=== PATIENT | male | born 2000 | race Caucasian/White ===

== ENCOUNTER 2024-01-24 01:28 | Emergency (ER) | payer SELFPAY ==
[2024-01-24 01:33] VITALS: BP 138/95; PULSE 72; TEMP 36.6; O2SAT 99; BMI 35.0
--- NOTE | 2024-01-24 01:42 | XR_ITS ---
The [address] [address] Patient Name: YARA HUI MRN: [id number] date: 2000 Sex: M Assigned Patient Location: ED.MAIN Current Patient Location: ER Accession/Order Number: [id number] Exam Date: 01/24/2024 01:48 Report Date: 01/24/2024 02:16 At the request of: EHSAN GATES Procedure: XR shoulder LT min 2V EXAM: XR shoulder LT min 2V HISTORY: fall COMPARISON: None. TECHNIQUE: 3 views of the left shoulder were obtained. FINDINGS: No acute fracture or dislocation is seen. The left humeral head is well-seated on the glenoid. The left acromioclavicular and coracoclavicular distances are preserved. The imaged lungs are clear. XR/XR shoulder LT min 2V IMPRESSION: 1. No acute fracture or dislocation of the left shoulder is seen. If there is concern for internal derangement, a nonemergent outpatient MRI is recommended. Electronically authenticated by: Benjamin KAUFMAN Date: 01/24/2024 02:16
--- NOTE | 2024-01-24 01:44 | ED.UPPEXIN1 ---
HPI HPI - Extremity Injury (Upper) General Chief Complaint: Extremity Injury, Upper Stated Complaint: UE INJURY Time Seen by Provider: 01/24/24 01:38 Source: patient Mode of arrival: walk-in Limitations: no limitations History of Present Illness HPI narrative: 23-year-old male who is right-handed presents for left shoulder pain. He had fallen backwards yesterday and landed on the shoulder. He points to the anterior shoulder area to indicate the area of most pain. No pain in the elbow or wrist or neck. He did not hit his head. It hurts more to move it. Related Data Allergies Allergy/AdvReac Type Severity Reaction Status Date / Time No Known Drug Allergies Allergy Verified 01/24/24 01:33 Opioid HPI Opioid Management Most Recent Pain and Opioid Data: Last Pain Scale 3 01/24/24 01:38 01/24/24 Review of Systems ROS Narrative A ten point review of systems is negative except as noted above. PFSH PFSH Social History Little interest or pleasure in doing things: not at all Feeling down, depressed, or hopeless: not at all Exam Narrative Exam Narrative: Nurses note and vital signs reviewed and patient is not hypoxic. General: The patient appears well and in no apparent distress. Patient is resting comfortably on cart. Skin: Warm, dry, no pallor noted. There is no rash noted. Head: Normocephalic, atraumatic Eye: Normal conjunctiva, no drainage Ears, Nose, Mouth, and Throat: oral mucosa is moist. Nares patent. Cardiovascular: Regular Rate and Rhythm Respiratory: Patient is in no distress, no accessory muscle use, lungs are clear to auscultation, no wheezing, rales or rhonchi Back: non-tender including the C-spine GI: Soft and nontender Musculoskeletal: The left shoulder was examined and has no deformity. There is no bruise or abrasion. No focal area of tenderness to palpation and it has good range of motion. Left elbow nontender and has full range of motion. Radial pulse 2+ on the left side. Neurological: A&O normal speech Psychiatric: Cooperative Constitutional Vital Signs, click to edit/add: Last Vital Signs Temp 97.8 F 01/24/24 01:33 Pulse 72 01/24/24 01:33 Resp 18 01/24/24 01:33 BP 138/95 H 01/24/24 01:33 Pulse Ox 99 1013/24 01:33 O2 Del Method Room Air 01/24/24 01:33 Course Vital Signs Vital signs: Vital Signs Temperature 97.8 F 01/24/24 01:33 Pulse Rate 72 01/24/24 01:33 Respiratory Rate 18 01/24/24 01:33 Blood Pressure 138/95 H 01/24/24 01:33 Pulse Oximetry 99 01/24/24 01:33 Oxygen Delivery Method Room Air 01/24/24 01:33 Temperature 97.8 F 01/24/24 01:33 Pulse Rate 72 01/24/24 01:33 Respiratory Rate 18 01/24/24 01:33 Blood Pressure 138/95 H 01/24/24 01:33 Pulse Oximetry 99 01/24/24 01:33 Oxygen Delivery Method Room Air 01/24/24 01:33 MDM - Extremity Injury (Upper) MDM Narrative Medical decision making narrative: X-ray per radiologist is no acute findings. I offered to make an appointment to see Dr. Boykin but he requested the address and phone number and he will call if it is not better in a few days. Treatment diagnosis and follow-up were discussed with the patient. Differential Diagnosis Differential diagnosis: Likely other (Shoulder strain, rotator cuff injury, shoulder fracture) Imaging Data Left shoulder x-ray: Radiologist's impression: ITS Impressions Shoulder X-Ray 01/24/24 01:42 IMPRESSION: 1. No acute fracture or dislocation of the left shoulder is seen. If there is concern for internal derangement, a nonemergent outpatient MRI is recommended. Electronically authenticated by: Benjamin KAUFMAN Date: 01/24/2024 02:16 Discharge Plan Discharge Chief Complaint: Extremity Injury, Upper Clinical Impression: Left shoulder strain Patient Disposition: Home, Self-Care Time of Disposition Decision: 02:23 Condition: Good Mode of Transportation: Private Vehicle Print Language: Guamanian Instructions: Rotator Cuff Injury (ED) Referrals: Physician,Non-Staff, [Primary Care Provider] - 1 week Jatinder Boykin MD [Physician] - 1 week
== END 2024-01-24 02:29 | disposition home or self-care (01) ==
PROVIDERS: Emergency Provider Emergency Medicine
DX: S46.912A Strain of unspecified muscle, fascia and tendon at shoulder and upper arm level, left arm, initial encounter (principal); W19.XXXA Unspecified fall, initial encounter
CPT/HCPCS: 73030; 99283

== ENCOUNTER 2024-02-05 20:29 | Emergency (ER) | payer MEDICAID, SELFPAY ==
[2024-02-05 20:32] VITALS: BP 130/81; PULSE 85; TEMP 36.6; O2SAT 99; BMI 35.0
--- OUTSIDE RECORDS SUMMARY | 2024-02-05 20:37 | XMS_ITS | CCD ---
Author Organization [facility] Care Team Providers Care Bulb Grower Name Role Phone IFEOMA BRITO Admitting Unavailable SELF, REFERRED Referring Unavailable DORI HOUGH Primary Care Unavailable ELAINA SEQUEIRA Attending Unavailable IFEOMA BRITO Admitting Unavailable DORI HOUGH Primary Care Unavailable SELF, REFERRED Referring Unavailable HAILE ATWOOD Attending Unavailable YARA EDWARDS Admitting Unavailable DORI HOUGH Primary Care Unavailable SELF, REFERRED Referring Unavailable TOSHA TODD Attending Unavailable DORI HOUGH Primary Care Unavailable JOSE MORAN Admitting Unavailable JOSE MORAN Attending Unavailable Problems Problem Classification Problem Date Documented Da te Episodic/Chronic Other lower respiratory disease (3 sources) Cough; Translations: [COUGH] Onset: 05-12-2019 Episodic Residual codes; unclassified (1 source) Procedure and treatment not carried out due to patient leaving prior to being seen by health care provider; Translations: [PROC AND TX NOT CARRIED OUT PT LEAVE] Onset: 05-16-2019 Episodic Results Test Name Value Interpretation Reference Range Facil ity *BETA STREP A CULTUREon 08-12 *BETA STREP A CULTURE Clinical Report: (D) Specimen: THROAT Collected: 09/07/2018 21:15 Status: Final Last Updated: 09/10/2018 08:09 ISO (Final) No Group A Streptococci Isolated Normal [facility] Comment on above: Performed By: #### 3 0316 #### [facility] [address] [place] [address], [facility] *RAPID FLU AANDB BY MOLECULA Nash 09-07-2018 *RAPID FLU AANDB BY MOLECULAR Clinical Report: (D) Specimen: NASAL SWAB Collected: 09/07/2018 21:15 Status: Final Last Updated: 09/07/2018 21:59 FLUA RNA (Final) Negative FLUB RNA (Final) Negative Normal [facility] Comment on above: Performed By: #### 3 1018 #### [facility] [address] [place] [address], [facility] POC STREP SCREENon 9 STREP POC Negative Normal NEG [facility] Comment on above: Result Comment: Perf ormed in ED Performed By: #### 3 0211 #### [facility] [address] [facility] [place] [place] [address], [facility] *BETA STREP A CULTUREon 07-12 *BETA STREP A CULTURE Clinical Report: (D) Specimen: THROAT Collected: 07/22/2018 14:45 Status: Final Last Updated: 07/24/2018 08:01 ISO (Final) No Group A Streptococci Isolated ISO (Final) Heavy Growth Colonies Consistent with Upper Respiratory Sofía Normal [facility] Comment on above: Performed By: #### 3 0316 #### [facility] [address] [place] [address], [facility] POC STREP SCREENon 9 STREP POC Negative Normal NEG [facility] Comment on above: Result Comment: Perf ormed in ED Performed By: #### 3 0211 #### [facility] [address] [facility] [place] [place] [address], [facility] *BETA STREP A CULTUREon *BETA STREP A CULTURE Clinical Report: (D) Specimen: THROAT Collected: 07/20/2018 19:00 Status: Final Last Updated: 07/22/2018 14:46 ISO (Final) No Group A Streptococci Isolated Normal [facility] Comment on above: Performed By: #### 3 0316 #### [facility] [address] [place] [address], [facility] *RAPID FLU AANDB BY MOLECULA Nash 07-20-2018 *RAPID FLU AANDB BY MOLECULAR Clinical Report: (D) Specimen: NASAL SWAB Collected: 07/20/2018 18:33 Status: Final Last Updated: 07/20/2018 19:06 FLUA RNA (Final) Positive for Influenza A Results called. Read back by ALUMINUM POLISHERELENI Jason on 07/20/18 at 1900 FLUB RNA (Final) Negative Normal [facility] Comment on above: Performed By: #### 3 1018 #### [facility] [address] [place] [address], [facility] POC STREP SCREENon 9 STREP POC Negative Normal NEG [facility] Comment on above: Result Comment: Perf ormed in ED Performed By: #### 3 0211 #### [facility] [address] [place] [address], [facility] Encounters Encounter Date Encounter Type Care Provider Facility Start: 05-12-2019 End: 05-12-2019 Patient encounter procedure DORI GIANLUCA Facility: Start: 09-07-2018 End: 09-08-2018 Emergency department patient visit YARA EDWARDS Facility:[facility] Start: 07-22-2018 End: 07-22-2018 Emergency department patient visit IFEOMA BRITO Facility:[facility] Start: 07-20-2018 End: 07-20-2018 Emergency department patient visit IFEOMA BRITO Facility:[facility] Payers Date Payer Category Payer Unknown [id number] 2.16.8 [id number] 1974 Unknown [id number] [id number] [id number] 1976 Unknown [id number] [id number] [id number] 1976 Unknown [id number] 2.16.84 [id number] 1959 Unknown [id number] Unknown [id number] Summary Purpose Family History No Family History Records FoundNo Family History Records Found Advance Directives No Advanced Directives Records FoundNo Advanced Directives Records Found Additional Source Comments (unrecognized sect ion and content) No Status Records FoundNo Status Records Found INFORMATION SOURCE (unrecogn ized section and content) DATE CREATED AUTHOR 11/22/2018 The [facility] DATE CREATED AUTHOR AUTHOR'S DIANN RANGEL 05/16/2019 The [employer] FOR RECORDS PERTAINING TO PATIENTS WHO ARE OR HAVE BEEN ENROLLED IN A CHEMICAL DEPENDENCY/SUBSTANCEABUSE PROGRAM, SOME INFORMATION MAY BE OMITTED. This clinical summary was aggregated from multiple sources. Caution should be exercised in using it in the provision of clinical care. This summary normalizes information from multiple sources, and as a consequence, information in this document may materially change the coding, format and clinical context of patient data. In addition, data may be omitted in some cases. CLINICAL DECISIONS SHOULD BE BASED ON THE PRIMARY CLINICAL RECORDS. [employer] [facility]. provides no warranty or guarantee of the accuracy or completeness of information in this document.
--- NOTE | 2024-02-05 20:57 | ED_ITS ---
HPI HPI - General Adult General Chief complaint: Headache Stated complaint: Headache Time Seen by Provider: 02/05/24 20:47 Source: patient Mode of arrival: walk-in Limitations: no limitations History of Present Illness HPI narrative: 23-year-old male presents here with a chief complaint of headache. Patient states he had a headache for the last 3 to 4 days. Denies worsening headache of his life sudden onset or thunderclap sensation. Patient sitting comfortably on the chair. Denies any nausea or vomiting. He states he took ibuprofen at home. He is alert and oriented. Examination is benign with no acute findings. He states he was seen here several weeks ago for left shoulder pain continues to have that but is not following up with an orthopedic. He said no new injury or trauma since that time. Related Data Home Medications ?Medication ?Instructions ?Recorded ?Confirmed No Known Home Medications 02/05/24 02/05/24 Allergies Allergy/AdvReac Type Severity Reaction Status Date / Time No Known Drug Allergies Allergy Verified 02/05/24 20:32 Opioid HPI Opioid Management Most Recent Opioid Data: Last Pain Scale 3 01/24/24 01:38 01/24/24 Review of Systems ROS Narrative All Systems are negative except as noted/marked.All systems reviewed and otherwise negative PFSH PFSH Social History Little interest or pleasure in doing things: not at all Feeling down, depressed, or hopeless: not at all Exam Narrative Exam Narrative: All Systems are negative except as noted/marked.All systems reviewed and otherwise negative Nurses note and vital signs reviewed and patient is not hypoxic. General: The patient appears well and in no apparent distress. Patient is resting comfortably on cart. Skin: Warm, dry, no pallor noted. There is no rash noted. Head: Normocephalic, atraumatic neck: No nuchal rigidity, full range of motion Eye: Normal conjunctiva, no drainage, EOMI. PERRL Ears, Nose, Mouth, and Throat: oral mucosa is moist. Nares patent. Mouth without vesicles. Ear canals patent. Tm's without Erythema Cardiovascular: Regular Rate and Rhythm Respiratory: Patient is in no distress, no accessory muscle use, lungs are clear to auscultation, no wheezing, rales or rhonchi Back: non-tender, no CVA tenderness bilaterally to percussion. GI: Normal bowel sounds, no tenderness to palpation, no masses appreciated. No rebound, guarding, or rigidity noted. Musculoskeletal: The patient has no evidence of calf tenderness, no pitting edema, symmetrical pulses noted bilaterally Neurological: A&O x4, normal speech Psychiatric: Cooperative Constitutional Vital Signs, click to edit/add: Last Vital Signs Temp 97.8 F 02/05/24 20:32 Pulse 85 02/05/24 20:32 Resp 18 02/05/24 20:32 BP 130/81 02/05/24 20:32 Pulse Ox 99 02/05/24 20:32 O2 Del Method Room Air 02/05/24 20:32 Course Vital Signs Vital signs: Vital Signs Temperature 97.8 F 02/05/24 20:32 Pulse Rate 85 02/05/24 20:32 Respiratory Rate 18 02/05/24 20:32 Blood Pressure 130/81 02/05/24 20:32 Pulse Oximetry 99 02/05/24 20:32 Oxygen Delivery Method Room Air 02/05/24 20:32 Temperature 97.8 F 02/05/24 20:32 Pulse Rate 85 02/05/24 20:32 Respiratory Rate 18 02/05/24 20:32 Blood Pressure 130/81 02/05/24 20:32 Pulse Oximetry 99 02/05/24 20:32 Oxygen Delivery Method Room Air 02/05/24 20:32 Medical Decision Making MDM Narrative Medical decision making narrative: Chief of minor headache. Vital signs are stable he is not toxic appearing no nuchal rigidity. Patient was offered a shot of ketorolac. Patient will follow- up with primary care physician. Patient denied worst Achromycin onset or thunderclap sensation. No head CT was necessary today. He said no blurry vision double vision or changes in vision. Denies nausea or vomiting. Generally healthy. Differential Diagnosis Differential Diagnosis: Migraine, tension headache Medical Records Medical records reviewed: Yes I reviewed the patient's medical records Discharge Plan Discharge Chief Complaint: Headache Clinical Impression: Headache, Left shoulder strain Patient Disposition: Home, Self-Care Time of Disposition Decision: 21:00 Condition: Good Mode of Transportation: Private Vehicle Prescriptions / Home Meds: No Action No Known Home Medications Print Language: Argentine Instructions: Acute Headache (ED), General Headache (ED) Referrals: Physician,Non-Staff, MD [Primary Care Provider] - 1 week Discharge Date/Time: 02/05/24 21:13
[2024-02-05] MEDS: IBUPROFEN 600 MG TABLET PO (21:10)
== END 2024-02-05 21:13 | disposition home or self-care (01) ==
PROVIDERS: Emergency Provider Internal Medicine
DX: S46.912A Strain of unspecified muscle, fascia and tendon at shoulder and upper arm level, left arm, initial encounter (principal); R51.9 Headache, unspecified; X58.XXXA Exposure to other specified factors, initial encounter
CPT/HCPCS: 99284

== ENCOUNTER 2024-02-18 19:59 | Emergency (ER) | payer MEDICAID, SELFPAY ==
--- OUTSIDE RECORDS SUMMARY | 2024-02-18 20:03 | XMS_ITS | CCD ---
Author Organization [facility] Care Team Providers Care Clinique Counter Manager Name Role Phone IFEOMA BRITO Admitting Unavailable [...] No Group A Streptococci Isolated Normal [facility] Comment on above: Performed By: #### 3 0316 #### [facility] [address] [place] [address], [facility] *RAPID FLU AANDB BY MOLECULA Nash 09-07-2018 *RAPID FLU AANDB BY MOLECULAR Clinical Report: (D) Specimen: NASAL SWAB Collected: 09/07/2018 21:15 Status: Final Last Updated: 09/07/2018 21:59 FLUA RNA (Final) Negative FLUB RNA (Final) Negative Normal [facility] Comment on above: Performed By: #### 3 1018 #### [facility] [address] [place] [address], [facility] POC STREP SCREENon 9 STREP POC Negative Normal NEG [facility] Comment on above: Result Comment: Perf ormed in ED Performed By: #### 3 0211 #### [facility] [address] [place] [address], [facility] *BETA STREP A CULTUREon 07-12 *BETA STREP A CULTURE Clinical Report: (D) Specimen: THROAT Collected: 07/22/2018 14:45 Status: Final Last Updated: 07/24/2018 08:01 ISO (Final) No Group A Streptococci Isolated ISO (Final) Heavy Growth Colonies Consistent with Upper Respiratory Sofía Normal [facility] Comment on above: Performed By: #### 3 0316 #### [facility] [address] [facility] [place] [address], [facility] POC STREP SCREENon 9 STREP POC Negative Normal NEG [facility] Comment on above: Result Comment: Perf ormed in ED Performed By: #### 3 0211 #### [facility] [address] [place] [address], [facility] *BETA STREP A CULTUREon *BETA STREP A CULTURE Clinical Report: (D) Specimen: THROAT Collected: 07/20/2018 19:00 Status: Final Last Updated: 07/22/2018 14:46 ISO (Final) No Group A Streptococci Isolated Normal [facility] Comment on above: Performed By: #### 3 0316 #### [facility] [address] [facility] [place] [address], [facility] *RAPID FLU AANDB BY MOLECULA Nash 07-20-2018 *RAPID FLU AANDB BY MOLECULAR Clinical Report: (D) Specimen: NASAL SWAB Collected: 07/20/2018 18:33 Status: Final Last Updated: 07/20/2018 19:06 FLUA RNA (Final) Positive for Influenza A Results called. Read back by SAND FILLERELENI Jason on 07/20/18 at 1900 FLUB RNA (Final) Negative Normal [facility] Comment on above: Performed By: #### 3 1018 #### [facility] [address] [place] [address], [facility] POC STREP SCREENon 9 STREP POC Negative Normal NEG [facility] Comment on above: Result Comment: Perf ormed in ED Performed By: #### 3 0211 #### [facility] [address] [facility] [place] [place] [address], [facility] Encounters Encounter Date Encounter Type Care Provider Facility Start: 05-12-2019 End: 05-12-2019 Patient encounter procedure DORI GIANLUCA Facility: Start: 09-07-2018 End: 09-08-2018 Emergency department patient visit YARA EDWARDS Facility:[facility] Start: 07-22-2018 End: 07-22-2018 Emergency department patient visit IFEOMA BRITO Facility:[facility] Start: 07-20-2018 End: 07-20-2018 Emergency department patient visit IFEOMA BRITO Facility:[facility] Payers Date Payer Category Payer Unknown [id number] [id number] [id number] 1974 Unknown [id number] [id number] [id number] 1976 Unknown [id number] [id number] [id number] 1976 Unknown [id number] 1959 Unknown [id number] Unknown [id number] Summary Purpose Family History No Family History Records FoundNo Family History Records Found Advance Directives No Advanced Directives Records FoundNo Advanced Directives Records Found Additional Source Comments (unrecognized sect ion and content) No Status Records FoundNo Status Records Found INFORMATION SOURCE (unrecogn ized section and content) DATE CREATED AUTHOR 11/22/2018 The [facility] DATE CREATED AUTHOR AUTHOR'S DIANN RANGEL 05/16/2019 [...] BE BASED ON THE PRIMARY CLINICAL RECORDS. [employer] [facility]. provides no warranty or guarantee of the accuracy or completeness of information in this document.
[2024-02-18 20:05] VITALS: BP 127/70; PULSE 80; TEMP 36.8; O2SAT 99; BMI 36.0
--- NOTE | 2024-02-18 20:12 | XR_ITS ---
The [address] [address] Patient Name: YARA HUI MRN: [id number] date: 2000 Sex: M Assigned Patient Location: ER Current Patient Location: ER Accession/Order Number: [id number] Exam Date: 02/18/2024 20:20 Report Date: 02/18/2024 21:49 At the request of: VALENTIN ZARATE Procedure: XR cervical spine 2-3V EXAM: XR cervical spine 2-3V HISTORY: pain COMPARISON: None. TECHNIQUE: 3 views of the cervical spine FINDINGS: Mild reversal of cervical lordotic curvature is seen which may be related to patient positioning versus muscle spasm. The cervical vertebral bodies demonstrate normal height and alignment. The atlantoaxial alignment is normal. The prevertebral soft tissues appear unremarkable. The visualized lung apices appear clear. XR/XR cervical spine 2-3V IMPRESSION: No acute fracture or traumatic malalignment. Electronically authenticated by: OLLIE WILEY Date: 02/18/2024 21:49
--- NOTE | 2024-02-18 20:12 | ED.NECK1 ---
Documented by User: Valentin Zarate 02/18/24 21:56 HPI HPI - Neck Pain/Injury General Chief Complaint: Neck Pain/Injury Stated Complaint: NECK PAIN Time Seen by Provider: 02/18/24 20:09 Source: patient Mode of arrival: walk-in Limitations: no limitations History of Present Illness HPI Narrative: 23 year old male presents to the ED for neck pain. Onset was today while working on a car. Reports he was trying to loosen lug nuts. States he felt something pop in his neck. Denies fever, chills, weakness. Denies N/T to his extremities. Denies change in bowel and/or bladder control. He has not had anything for pain today. He is requesting Motrin. He declined a muscle relaxer. Related Data Home Medications ?Medication ?Instructions ?Recorded ?Confirmed No Known Home Medications 02/05/24 02/18/24 Allergies Allergy/AdvReac Type Severity Reaction Status Date / Time No Known Drug Allergies Allergy Verified 02/18/24 20:08 Opioid HPI Opioid Management Most Recent Opioid Data: Last Pain Scale 3 01/24/24 01:38 01/24/24 Review of Systems ROS Constitutional Denies: fever or chills Eyes Denies: change in vision Ears, nose, mouth, and throat Reports: neck pain; Denies: throat pain Cardiovascular Denies: chest pain Respiratory Denies: shortness of breath or cough Gastrointestinal Denies: abdominal pain Genitourinary Denies: painful urination, urinary frequency or difficulty urinating Musculoskeletal Reports: neck pain; Denies: back pain, extremity pain or extremity swelling Integumentary/Breast Denies: rash or itching Neurological Denies: headache, numbness in extremities, weakness in extremities, lack of coordination or dizziness PFSH PFSH Social History Little interest or pleasure in doing things: not at all Feeling down, depressed, or hopeless: not at all Exam Constitutional Vital Signs, click to edit/add: Last Vital Signs Temp 98.2 F 02/18/24 20:05 Pulse 80 02/18/24 20:05 Resp 20 02/18/24 20:05 BP 127/70 02/18/24 20:05 Pulse Ox 99 02/18/24 20:05 O2 Del Method Room Air 02/18/24 20:05 Common normals: no apparent distress and oriented x3 General appearance: cooperative Eye Common normals: conjunctivae normal and no scleral icterus Neck & C-Spine Common normals: supple Cervical spine: cervical spine tenderness, paracervical muscle tenderness and paracervical muscle spasm Respiratory Effort & inspection: able to speak in complete sentences and symmetric chest movement Cardio Common normals: regular rate and regular rhythm Peripheral pulses: radial pulses present Neuro Common normals: oriented x3 and moves all extremities Sensorium/orientation: awake and alert Speech: speech normal Gait (neuro): normal gait Course Vital Signs Vital signs: Vital Signs Temperature 98.2 F 02/18/24 20:05 Pulse Rate 80 02/18/24 20:05 Respiratory Rate 20 02/18/24 20:05 Blood Pressure 127/70 02/18/24 20:05 Pulse Oximetry 99 02/18/24 20:05 Oxygen Delivery Method Room Air 02/18/24 20:05 Temperature 98.2 F 02/18/24 20:05 Pulse Rate 80 02/18/24 20:05 Respiratory Rate 20 02/18/24 20:05 Blood Pressure 127/70 02/18/24 20:05 Pulse Oximetry 99 02/18/24 20:05 Oxygen Delivery Method Room Air 02/18/24 20:05 MDM - Neck Pain/Injury MDM Narrative Medical decision making narrative: Imaging was pending. Care was resumed to Dr. Mcdonald. See her dictation for further evaluation and treatment. Medical Records Attestation: I reviewed the patient's medical records. Discharge Plan Discharge Chief Complaint: Neck Pain/Injury Clinical Impression: Cervical strain Patient Disposition: Home, Self-Care Time of Disposition Decision: 22:06 Condition: Good Prescriptions / Home Meds: No Action No Known Home Medications Print Language: Anguillan Instructions: Cervical Strain (ED) Referrals: Physician,Non-Staff, [Primary Care Provider] - 1 week Documented by User: Lucinda Mcdonald MD 02/18/24 22:06 HPI HPI - Neck Pain/Injury General Chief Complaint: Neck Pain/Injury Stated Complaint: NECK PAIN Time Seen by Provider: 02/18/24 20:09 Related Data Home Medications ?Medication ?Instructions ?Recorded ?Confirmed No Known Home Medications 02/05/24 02/18/24 Allergies Allergy/AdvReac Type Severity Reaction Status Date / Time No Known Drug Allergies Allergy Verified 02/18/24 20:08 Opioid HPI Opioid Management Most Recent Opioid Data: Last Pain Scale 3 01/24/24 01:38 01/24/24 PFSH PFSH Social History Little interest or pleasure in doing things: not at all Feeling down, depressed, or hopeless: not at all Exam Constitutional Vital Signs, click to edit/add: Last Vital Signs Temp 98.2 F 02/18/24 20:05 Pulse 80 02/18/24 20:05 Resp 20 02/18/24 20:05 BP 127/70 02/18/24 20:05 Pulse Ox 99 02/18/24 20:05 O2 Del Method Room Air 02/18/24 20:05 Course Vital Signs Vital signs: Vital Signs Temperature 98.2 F 02/18/24 20:05 Pulse Rate 80 02/18/24 20:05 Respiratory Rate 20 02/18/24 20:05 Blood Pressure 127/70 02/18/24 20:05 Pulse Oximetry 99 02/18/24 20:05 Oxygen Delivery Method Room Air 02/18/24 20:05 Temperature 98.2 F 02/18/24 20:05 Pulse Rate 80 02/18/24 20:05 Respiratory Rate 20 02/18/24 20:05 Blood Pressure 127/70 02/18/24 20:05 Pulse Oximetry 99 02/18/24 20:05 Oxygen Delivery Method Room Air 02/18/24 20:05 MDM - Neck Pain/Injury MDM Narrative Medical decision making narrative: Imaging was pending. Care was resumed to Dr. Mcdonald. See her dictation for further evaluation and treatment. This patient was seen and evaluated conjunction with the nurse practitioner. He presents with some mid to lower neck pain after working on a car and feeling a pop in his neck. His physical exam and neuroexam are normal. X-ray of the neck is negative for acute findings. He will be discharged home with prescription for ibuprofen Medical Records Medical records narrative: The [address] [address] XRay Report Signed Patient: YARA HUI MR#: [id number] : 2000 Acct:[id number] Age/Sex: 23 / M ADM Date: 02/18/24 Loc: ER Attending Dr: Ordering Physician: Valentin Zarate Date of Service: 02/18/24 Procedure(s): XR cervical spine 2-3V Accession Number(s): [id number] cc: Valentin Zarate; Physician,Non-Staff M.Luis Alberto~ The [place] [address] Patient Name: YARA HUI MRN: [id number] date: 2000 Sex: M Assigned Patient Location: ER Current Patient Location: ER Accession/Order Number: [id number] Exam Date: 02/18/2024 20:20 Report Date: 02/18/2024 21:49 At the request of: VALENTIN ZARATE Procedure: XR cervical spine 2-3V EXAM: XR cervical spine 2-3V HISTORY: pain COMPARISON: None. TECHNIQUE: 3 views of the cervical spine FINDINGS: Mild reversal of cervical lordotic curvature is seen which may be related to patient positioning versus muscle spasm. The cervical vertebral bodies demonstrate normal height and alignment. The atlantoaxial alignment is normal. The prevertebral soft tissues appear unremarkable. The visualized lung apices appear clear. XR/XR cervical spine 2-3V IMPRESSION: No acute fracture or traumatic malalignment. Electronically authenticated by: OLLIE WILEY Date: 02/18/2024 21:49 Discharge Plan Discharge Chief Complaint: Neck Pain/Injury Clinical Impression: Cervical strain Patient Disposition: Home, Self-Care Time of Disposition Decision: 22:06 Condition: Good Prescriptions / Home Meds: No Action No Known Home Medications Print Language: Anguillan Instructions: Cervical Strain (ED) Referrals: Physician,Non-Staff, MD [Primary Care Provider] - 1 week
[2024-02-18] MEDS: IBUPROFEN 400 MG TABLET 800 MG PO (20:28)
== END 2024-02-18 22:13 | disposition home or self-care (01) ==
PROVIDERS: Emergency Provider Emergency Medicine
DX: S16.1XXA Strain of muscle, fascia and tendon at neck level, initial encounter (principal); X50.9XXA Other and unspecified overexertion or strenuous movements or postures, initial encounter
CPT/HCPCS: 72040; 99283

== ENCOUNTER 2024-05-22 16:21 | Emergency (ER) | payer MEDICAID, SELFPAY ==
[2024-05-22 16:28] VITALS: BP 141/81; PULSE 93; TEMP 36.6; O2SAT 97; BMI 37.1
--- OUTSIDE RECORDS SUMMARY | 2024-05-22 16:29 | XMS_ITS | CCD ---
Author Organization [facility] Care Team Providers Care Teacher Specialist Name Role Phone IFEOMA BRITO Admitting Unavailable [...] No Group A Streptococci Isolated Normal [facility] Comment on above: Performed By: #### 3 0316 #### [facility] [address] [place] [address], [facility] *RAPID FLU AANDB BY MOLECULA Nash 09-07-2018 *RAPID FLU AANDB BY MOLECULAR Clinical Report: (D) Specimen: NASAL SWAB Collected: 09/07/2018 21:15 Status: Final Last Updated: 09/07/2018 21:59 FLUA RNA (Final) Negative FLUB RNA (Final) Negative Normal [facility] Comment on above: Performed By: #### 3 1018 #### [facility] [address] [place] [address], [facility] POC STREP SCREENon 9 STREP POC Negative Normal NEG [facility] Comment on above: Result Comment: Perf ormed in ED Performed By: #### 3 0211 #### [facility] [address] [facility] [place] [address], [facility] *BETA STREP A CULTUREon 07-12 *BETA STREP A CULTURE Clinical Report: (D) Specimen: THROAT Collected: 07/22/2018 14:45 Status: Final Last Updated: 07/24/2018 08:01 ISO (Final) No Group A Streptococci Isolated ISO (Final) Heavy Growth Colonies Consistent with Upper Respiratory Sofía Normal [facility] Comment on above: Performed By: #### 3 0316 #### [facility] [address] [facility] [place] [address], [facility] POC STREP SCREENon 9 STREP POC Negative Normal NEG [facility] Comment on above: Result Comment: Perf ormed in ED Performed By: #### 3 0211 #### [facility] [address] [facility] [place] [address], [facility] *BETA STREP A CULTUREon *BETA STREP A CULTURE Clinical Report: (D) Specimen: THROAT Collected: 07/20/2018 19:00 Status: Final Last Updated: 07/22/2018 14:46 ISO (Final) No Group A Streptococci Isolated Normal [facility] Comment on above: Performed By: #### 3 0316 #### [facility] [address] [facility] [place] [place] [address], [facility] *RAPID FLU AANDB BY MOLECULA Nash 07-20-2018 *RAPID FLU AANDB BY MOLECULAR Clinical Report: (D) Specimen: NASAL SWAB Collected: 07/20/2018 18:33 Status: Final Last Updated: 07/20/2018 19:06 FLUA RNA (Final) Positive for Influenza A Results called. Read back by ACTING SECTION CHIEFELENI Jason on 07/20/18 at 1900 FLUB RNA (Final) Negative Normal [facility] Comment on above: Performed By: #### 3 1018 #### [facility] [address] [place] [address], [facility] POC STREP SCREENon 9 STREP POC Negative Normal NEG [facility] Comment on above: Result Comment: Perf ormed in ED Performed By: #### 3 0211 #### [facility] [address] [facility] [place] [address], [facility] Encounters Encounter Date Encounter Type Care Provider Facility Start: 05-12-2019 End: 05-12-2019 Patient encounter procedure DORI GIANLUCA Facility: Start: 09-07-2018 End: 09-08-2018 Emergency department patient visit YARA EDWARDS Facility:[facility] Start: 07-22-2018 End: 07-22-2018 Emergency department patient visit IFEOMA BRITO Facility:[facility] Start: 07-20-2018 End: 07-20-2018 Emergency department patient visit IFEOMA BRITO Facility:[facility] Payers Date Payer Category Payer Unknown [id number] 1974 Unknown [id number] 1974 Unknown [id number] 1976 Unknown [id number] 1959 Unknown [id number] Unknown [id number] Summary Purpose Family History No Family History Records FoundNo Family History Records Found Advance Directives No Advanced Directives Records FoundNo Advanced Directives Records Found Additional Source Comments (unrecognized sect ion and content) No Status Records FoundNo Status Records Found INFORMATION SOURCE (unrecogn ized section and content) DATE CREATED AUTHOR 11/22/2018 [facility] DATE CREATED AUTHOR AUTHOR'S DIANN RANGEL 05/16/2019 [...] BE BASED ON THE PRIMARY CLINICAL RECORDS. [employer] [facility]. provides no warranty or guarantee of the accuracy or completeness of information in this document.
--- NOTE | 2024-05-22 16:39 | ED_ITS ---
HPI HPI - General Adult General Chief complaint: Wound/Laceration Stated complaint: FACIAL INJURY Time Seen by Provider: 05/22/24 16:39 Source: patient Mode of arrival: walk-in Limitations: no limitations History of Present Illness HPI narrative: 24-year-old male arrives to the ER with concerns as to whether his nose is broken or not. He was seen 2 days ago at [place] [facility] for a nose injury patient was working on a car and the ocampo came down striking the tip of his nose causing an abrasion and laceration to his lip. He reports no imaging studies his concern is if his nose is broken or not if he needs to be careful with it. Sutures in the left upper lip appear well-healing. Patient states his chief concern is that he was not given much information about his nose. He denies any facial numbness and is able to breathe easily out of both nostrils he reports since his ER visit though he has had a slight nonproductive cough and some congestion and is concerned that he is getting a sinus infection but there has been no reported fever. Patient appears in no distress Onset (ago): day(s) (2) Related Data Previous Rx's ?Medication ?Instructions ?Recorded loratadine 5 mg-pseudoephedrine ER 1 tab PO BID PRN cold symptoms #14 05/22/24 120 mg tablet,extended tabs release,12hr (Claritin-D 12 Hour) Allergies Allergy/AdvReac Type Severity Reaction Status Date / Time No Known Drug Allergies Allergy Verified 02/18/24 20:08 Opioid HPI Opioid Management Most Recent Opioid Data: Last Pain Scale 3 01/24/24 01:38 01/24/24 Review of Systems ROS Constitutional Denies: fever or chills Eyes Denies: change in vision, blurry vision, blind spots, light sensitivity or eye discomfort Ears, nose, mouth, and throat Reports: nasal congestion and post nasal drip; Denies: throat pain, neck pain, throat swelling, difficulty swallowing or nasal discharge Cardiovascular Denies: chest pain or palpitations Respiratory Denies: shortness of breath, cough or wheezing Gastrointestinal Denies: abdominal pain, nausea or vomiting Musculoskeletal Denies: back pain, neck pain or extremity pain Integumentary/Breast Denies: rash Neurological Denies: headache Psychiatric Denies: anxiety PFSH PFSH Social History Little interest or pleasure in doing things: not at all Feeling down, depressed, or hopeless: not at all Exam Narrative Exam Narrative: Nurses notes and vital signs reviewed and patient is not hypoxic. General: The patient appears well and in no apparent distress. Patient is resting comfortably on cart. Skin: Warm, dry, no pallor noted. Well-healing abrasion noted to the tip of his nose well-healing laceration left upper lip with sutures present no laceration to the inner aspect of his lip and no evidence of dental or gum injury. Head: Normocephalic, atraumatic, abrasion to nose and healing laceration to left upper lip appear isolated injuries from head trauma. Neck: Supple, trachea mid-line, no tenderness, no lymphadenopathy Eye: Pupils are equal, round and reactive to light, EOMI, denies double vision. Ears, Nose, Mouth, and Throat: TM are clear, normal light reflex, oral mucosa is moist, no posterior oropharynx erythema or hypertrophy, uvula is mid-line, frontal or maxillary sinus tenderness, Bilateral nares patent on visual inspection, no bleeding or evidence of injury to septum Cardiovascular: Regular Rate and Rhythm Respiratory: Patient is in no distress, no accessory muscle use, lungs are clear to auscultation, no wheezing, rales or rhonchi. Chest Wall: no tenderness Back: non-tender, no CVA tenderness Musculoskeletal: normal ROM, no tenderness, no swelling Neurological: A&O x4, facial sensation is equal and symmetric to all dermatomes Psychiatric: Cooperative Constitutional Vital Signs, click to edit/add: Last Vital Signs Temp 98 F 05/22/24 16:28 Pulse 93 H 05/22/24 16:28 Resp 18 05/22/24 16:28 BP 141/81 05/22/24 16:28 Pulse Ox 97 05/22/24 16:28 O2 Del Method Room Air 05/22/24 16:28 Course Vital Signs Vital signs: Vital Signs Temperature 98 F 05/22/24 16:28 Pulse Rate 93 H 05/22/24 16:28 Respiratory Rate 18 05/22/24 16:28 Blood Pressure 141/81 05/22/24 16:28 Pulse Oximetry 97 05/22/24 16:28 Oxygen Delivery Method Room Air 05/22/24 16:28 Temperature 98 F 05/22/24 16:28 Pulse Rate 93 H 05/22/24 16:28 Respiratory Rate 18 05/22/24 16:28 Blood Pressure 141/81 05/22/24 16:28 Pulse Oximetry 97 05/22/24 16:28 Oxygen Delivery Method Room Air 05/22/24 16:28 Medical Decision Making [facility] Narrative Medical decision making narrative: Patient presents for a 2-day wound check he was concerned of a possible nasal bone fracture he has no significant pain with palpation of his nasal bridge intact sensation bilaterally. Nasal Bone x-ray was discussed along with indications for CT of his facial bones. Patient injury noted for a grazing injury from a car ocampo with abrasion noted nose appears grossly midline with minimal swelling. We discussed the topical skin care and after skin heals to limit scarring from sunlight with use of sunscreen. Patient notes he has had some slight postnasal drainage and congestion and concerned that he is developing a sinus infection he has no sinus tenderness and no fever we are recommending [id number] medications and patient is requesting written prescriptions. We discussed the risks and benefits of a decongestant and potent ial side effects. Patient is thankful he was given the name of a local ENT to follow-up if he has additional concerns regarding his nose but agrees that a CT is not indicated and he declines the need for a nasal bone x-ray after treatment discussed. Denies any significant head injury with his episode. Congestion and upper respiratory symptoms starting today likely too early to tell but viral URI is suspected given benign exam. Symptomatic treatment recommended at this time. The patient is to followup with primary care physician in next 2-3 days or to return to the emergency department should any of the signs or symptoms worsen or new symptoms develop. Patient had questions answered. The patient agrees with the following Diagnosis and Treatment plan and the patient will be discharged home. Discharge Plan Discharge Chief Complaint: Wound/Laceration Clinical Impression: Abrasion of nose, Upper respiratory infection, Laceration re-check Patient Disposition: Home, Self-Care Time of Disposition Decision: 17:13 Condition: Good Prescriptions / Home Meds: New Claritin-D 12 Hour 5-120 mg tablet extended release 12 hr 1 tab PO BID PRN (Reason: cold symptoms) Qty: 14 0RF Print Language: Thai Instructions: Upper Respiratory Infection (ED), Abrasion (ED) Additional Instructions: Suture removal recommend in 4 days with facial laceration Keep scab on nose from excessive sunlight. Referrals: Jonathan Montana MD [Physician] - 1 week Christi Manzanares MD [Physician] - As needed
== END 2024-05-22 17:19 | disposition home or self-care (01) ==
PROVIDERS: Emergency Provider Emergency Medicine
DX: J06.9 Acute upper respiratory infection, unspecified (principal); S01.511D Laceration without foreign body of lip, subsequent encounter; S00.31XD Abrasion of nose, subsequent encounter; W22.8XXD Striking against or struck by other objects, subsequent encounter
CPT/HCPCS: 99283

== ENCOUNTER 2024-08-04 20:35 | Emergency (ER) | payer MEDICAID, SELFPAY ==
[2024-08-04 20:39] VITALS: BP 119/78; PULSE 70; TEMP 36.8; O2SAT 98; BMI 35.0
--- NOTE | 2024-08-04 20:48 | ED.SKABFB1 ---
HPI - Skin/Abscess/Foreign Bdy General Chief complaint: Skin/Abscess/Foreign Body Stated complaint: RASH Time Seen by Provider: 08/04/24 20:40 Source: patient Mode of arrival: walk-in Limitations: no limitations History of Present Illness HPI narrative: patient works for [employer]. presents with rash on his hands. Also has mild sun burn on his ears and face. He is concerned about the skin rash. Mild itch. No swelling or pain Related Data Previous Rx's ?Medication ?Instructions ?Recorded loratadine 5 mg-pseudoephedrine ER 1 tab PO BID PRN cold symptoms #14 05/22/24 120 mg tablet,extended tabs release,12hr (Claritin-D 12 Hour) Allergies Allergy/AdvReac Type Severity Reaction Status Date / Time No Known Drug Allergies Allergy Verified 02/18/24 20:08 Review of Systems ROS Status of ROS 10 or more systems reviewed and unremarkable except as noted in history and below PFSH PFSH Social History Little interest or pleasure in doing things: not at all Feeling down, depressed, or hopeless: not at all Exam Constitutional Vital Signs, click to edit/add: Last Vital Signs Temp 98.3 F 08/04/24 20:39 Pulse 70 08/04/24 20:39 Resp 16 08/04/24 20:39 BP 119/78 08/04/24 20:39 Pulse Ox 98 08/04/24 20:39 O2 Del Method Room Air 08/04/24 20:39 Common normals: no apparent distress, average body habitus, oriented x3, no limitations, healthy appearing, alert and well nourished [facility] Common normals: normocephalic and head/scalp atraumatic Other: first degree sun burn to face. early 2nd degree burn to top of his ears Eye Common normals: EOMs intact bilaterally Respiratory Common normals: normal respiratory effort, no retractions, no use of accessory muscles and clear to auscultation bilaterally Cardio Common normals: regular rate, regular rhythm, S1 normal heart sound and S2 normal heart sound Extremity Other: faint linear rash dorsum both hands. no swelling, drainage or tenderness Neuro Common normals: oriented x3, CN's II-XII intact bilaterally, moves all extremities and no focal motor deficits Sensorium/orientation: awake Psych Appearance: grossly normal Course Vital Signs Vital signs: Vital Signs Temperature 98.3 F 08/04/24 20:39 Pulse Rate 70 08/04/24 20:39 Respiratory Rate 16 08/04/24 20:39 Blood Pressure 119/78 08/04/24 20:39 Pulse Oximetry 98 08/04/24 20:39 Oxygen Delivery Method Room Air 08/04/24 20:39 Temperature 98.3 F 08/04/24 20:39 Pulse Rate 70 08/04/24 20:39 Respiratory Rate 16 08/04/24 20:39 Blood Pressure 119/78 08/04/24 20:39 Pulse Oximetry 98 08/04/24 20:39 Oxygen Delivery Method Room Air 08/04/24 20:39 MDM - Skin/Abscess/Foreign Bdy MDM Narrative Medical decision making narrative: 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 rash on hands is minor and may be contact dermatitis. States he has an allergy to hydrocortisone cream. States as a kid he had impetigo and was seen at a local hospital and advised to use hydrocortisone cream . It made the impetigo worse. He feels this is an allergic reaction. He is informed that this is most likely not an allergic reaction but due to his reservations will have him use antihistamine and OTC benadryl cream sun burn to his face is first degree. 2nd degree sun burn to tops of his ears he is advised to use OTC aloe or similar. Discharged home and advised to follow up with his doctor Discharge Plan Discharge Chief Complaint: Skin/Abscess/Foreign Body Clinical Impression: Burn from the sun, Contact dermatitis Patient Disposition: Home, Self-Care Prescriptions / Home Meds: No Action Claritin-D 12 Hour 5-120 mg tablet extended release 12 hr 1 tab PO BID PRN (Reason: cold symptoms) Qty: 14 0RF Print Language: Vietnamese Instructions: Contact Dermatitis (ED), Sunburn (ED) Additional Instructions: use zyrtec or claritin daily unti rash on hands resolve along with topical benadryl cream. follow up with your doctor next week for recheck Referrals: Physician,Non-Staff, MD [Primary Care Provider] - 1 week
[2024-08-04] MEDS: CETIRIZINE HCL 10 MG TABLET PO (21:07)
== END 2024-08-04 21:11 | disposition home or self-care (01) ==
PROVIDERS: Emergency Provider Internal Medicine
DX: L25.9 Unspecified contact dermatitis, unspecified cause (principal); L55.1 Sunburn of second degree
CPT/HCPCS: 99283

== ENCOUNTER 2024-08-10 19:33 | Emergency (ER) | payer MEDICAID, SELFPAY ==
[2024-08-10 19:38] VITALS: BP 138/71; PULSE 75; TEMP 36.7; O2SAT 98; BMI 35.0
--- NOTE | 2024-08-10 19:49 | ED.LOWEXI1 ---
HPI HPI - Extremity Injury (Lower) General Chief Complaint: Extremity Injury, Lower Stated Complaint: Fall Time Seen by Provider: 08/10/24 19:45 Source: patient Mode of arrival: walk-in Limitations: no limitations History of Present Illness HPI Narrative: 24 year old male presents to the ED for left ankle pain s/p injury this evening. Reports falling down 6-7 steps at home, twisting his ankle. Denies hitting his head and LOC. Denies injury to other areas. Denies pain to his left knee and foot. Denies N/T. Related Data Previous Rx's ?Medication ?Instructions ?Recorded loratadine 5 mg-pseudoephedrine ER 1 tab PO BID PRN cold symptoms #14 05/22/24 120 mg tablet,extended tabs release,12hr (Claritin-D 12 Hour) Allergies Allergy/AdvReac Type Severity Reaction Status Date / Time No Known Drug Allergies Allergy Verified 08/10/24 19:36 Opioid HPI Opioid Management Most Recent Pain and Opioid Data: Last Pain Scale 3 01/24/24, 01:38 Review of Systems ROS Constitutional Denies: fever or chills Cardiovascular Denies: chest pain Respiratory Denies: shortness of breath Gastrointestinal Denies: abdominal pain Musculoskeletal Reports: extremity pain; Denies: back pain or neck pain Integumentary/Breast Denies: new lesion Neurological Denies: headache, numbness in extremities, weakness in extremities or dizziness PFSH PFSH Social History Little interest or pleasure in doing things: not at all Feeling down, depressed, or hopeless: not at all Exam Constitutional Vital Signs, click to edit/add: Last Vital Signs Temp 98.0 F 08/10/24 19:38 Pulse 75 08/10/24 19:38 Resp 19 08/10/24 19:38 BP 138/71 08/10/24 19:38 Pulse Ox 98 08/10/24 19:38 O2 Del Method Room Air 08/10/24 19:38 Common normals: no apparent distress and oriented x3 General appearance: cooperative Eye Common normals: conjunctivae normal and no scleral icterus Neck & C-Spine Common normals: supple Extremity Left lower extremity: ankle joint Other: Swelling, tenderness to left lateral ankle. Distal sensation intact. No obvious deformity. No tenderness over Achilles. No tenderness to left foot, knee, or lower leg. Pt able to move toes of left foot. Neuro Common normals: oriented x3, CN's II-XII intact bilaterally, moves all extremities and no focal motor deficits Sensorium/orientation: awake and alert Speech: speech normal Course Vital Signs Vital signs: Vital Signs Temperature 98.0 F 08/10/24 19:38 Pulse Rate 75 08/10/24 19:38 Respiratory Rate 19 08/10/24 19:38 Blood Pressure 138/71 08/10/24 19:38 Pulse Oximetry 98 08/10/24 19:38 Oxygen Delivery Method Room Air 08/10/24 19:38 Temperature 98.0 F 08/10/24 19:38 Pulse Rate 75 08/10/24 19:38 Respiratory Rate 19 08/10/24 19:38 Blood Pressure 138/71 08/10/24 19:38 Pulse Oximetry 98 08/10/24 19:38 Oxygen Delivery Method Room Air 08/10/24 19:38 MDM - Extremity Injury (Lower) MDM Narrative Medical decision making narrative: X-ray was negative for fracture. An avril wrap was applied. The application was checked and was appropriate; the LLE remained NVI. He was fitted for crutches and teaching was done. Tylenol and/or Motrin as directed for pain. Follow up with podiatry for a recheck, further evaluation and treatment. Differential Diagnosis Differential diagnosis: Likely ankle sprain and strain and ankle fracture Imaging Data XR left ankle: Attestation: I have reviewed the pertinent imaging results. Radiologist's impression: 1. Moderate soft tissue swelling overlying the lateral malleolus. 2. Moderate soft tissue swelling anterior to the tibiotalar joint. 3. Mild soft tissue swelling overlying the medial malleolus. 4. No acute fracture or dislocation. 5. No tibiotalar joint effusion. Discharge Plan Discharge Chief Complaint: Extremity Injury, Lower Clinical Impression: Ankle sprain Patient Disposition: Home, Self-Care Time of Disposition Decision: 22:02 Condition: Good Mode of Transportation: Private Vehicle Prescriptions / Home Meds: No Action Claritin-D 12 Hour 5-120 mg tablet extended release 12 hr 1 tab PO BID PRN (Reason: cold symptoms) Qty: 14 0RF Print Language: Upper Sorbian Instructions: Ankle Sprain (ED), P.R.I.C.E. Treatment (ED) Referrals: Physician,Non-Staff, [Primary Care Provider] - 1 week Fernando Leon DPM [Physician, Podiatry] - 1 week Discharge Date/Time: 08/10/24 22:15
[2024-08-10] MEDS: ACETAMINOPHEN 500 MG TABLET 1000 MG PO (20:13)
[2024-08-10] MEDS: IBUPROFEN 400 MG TABLET 800 MG PO (20:14)
[2024-08-10 21:08] VITALS: BP 132/68; PULSE 58; O2SAT 100
== END 2024-08-10 22:15 | disposition home or self-care (01) ==
PROVIDERS: Emergency Provider Internal Medicine
DX: S93.402A Sprain of unspecified ligament of left ankle, initial encounter (principal); W10.8XXA Fall (on) (from) other stairs and steps, initial encounter
CPT/HCPCS: 73610; 99283